=== PATIENT | female | born 1990 | race Caucasian/White ===

== ENCOUNTER 2019-01-25 11:07 | Emergency (ER) | payer OTHER, BC | END 2019-01-25 12:26 | disposition home or self-care (01) | LOC: JERFT 11:07 ==

== ENCOUNTER 2024-03-02 20:41 | Emergency (ER) | payer OTHER ==
[2024-03-02 20:51] VITALS: RESP 18; TEMP 98.6; BMI 28.3
[2024-03-02] MEDS ORDERED: METOCLOPRAMIDE HCL INJECTION 10 MG/2 ML VIAL ONE (21:47)
[2024-03-02] MEDS ORDERED: FAMOTIDINE 20 MG/50 ML IVPB 20 MG/50 ML MG IVPB ONE (21:47)
[2024-03-02 21:58] LABS: BASO % 0.5 % (0-2.0); EOS % 0.4 % (0-4.5); HEMATOCRIT 45.4 % (32.4-45.2); HEMOGLOBIN 15.2 GM/dL (10.7-15.3); LYMPH % 18.7 % (8-40); MCH 29.5 pg (25.7-33.7); MCHC 33.4 g/dl (32.0-36.0); MEAN CELL VOLUME 88.4 fl (80-96); MEAN PLT VOLUME 8.3 fl (7.5-11.1); MONO % 7.6 % (3.8-10.2); NEUT % 72.8 % (42.8-82.8); PLATELET COUNT 242 10^3/uL (134-434); RBC 5.14 M/mm3 (3.60-5.2); RDW 13.9 % (11.6-15.6); WHITE BLOOD COUNT 11.2 K/mm3 (4.0-10.0)
[2024-03-02] MEDS: DEXTROSE 5%-NORMAL SALINE 1,000 ML IV ONE (22:00)
[2024-03-02] MEDS: SODIUM CHLORIDE 0.9% 500 ML INFUS.BAG IV ONE (22:02)
[2024-03-02] MEDS: ONDANSETRON 4 MG/2 ML VIAL IVPUSH ONE (22:02)
[2024-03-02] MEDS: FAMOTIDINE 20 MG/50 ML IVPB 20 MG/50 ML MG IVPB ONE (22:02)
[2024-03-02] MEDS: METOCLOPRAMIDE HCL INJECTION 10 MG/2 ML VIAL IVPB ONE (22:02)
[2024-03-02 22:26] LABS: POTASSIUM 3.9 mmol/L (3.5-5.1)
[2024-03-02 22:28] LABS: BLOOD UREA NITROGEN 11.8 mg/dL (7-18); CALCIUM 9.9 mg/dL (8.5-10.1)
[2024-03-02 22:31] LABS: CREATININE 0.7 mg/dL (0.55-1.3)
[2024-03-02 22:33] LABS: BILIRUBIN,TOTAL 1.3 mg/dL (0.2-1); TOT PROT 8.5 g/dl (6.4-8.2)
[2024-03-02] MEDS ORDERED: MAG HYDROX/AL HYDROX/SIMETH 30 ML UNIT-DOSE CUP ONE (22:41)
[2024-03-02] MEDS: MAG HYDROX/AL HYDROX/SIMETH 30 ML UNIT-DOSE CUP PO ONE (22:42)
[2024-03-02] MEDS ORDERED: PYRIDOXINE HCL (B-6) 50 MG TABLET (FP) PO SCH (23:23)
[2024-03-03] MEDS ORDERED: ONDANSETRON 4 MG/2 ML VIAL ONE (00:09)
[2024-03-03] MEDS: ONDANSETRON 4 MG/2 ML VIAL IVPUSH ONE (00:21)
[2024-03-03] MEDS: PYRIDOXINE HCL (B-6) 50 MG TABLET (FP) PO ONE (01:00)
[2024-03-03 01:09] LABS: URINE APPEARANCE CLEAR; URINE BILIRUBIN NEGATIVE (NEGATIVE); URINE COLOR YELLOW; URINE GLUCOSE (UA) 3+ (NEGATIVE); URINE KETONE 4+ (NEGATIVE); URINE LEUK ESTERASE NEGATIVE (NEGATIVE); URINE NITRITE NEGATIVE (NEGATIVE); URINE PROTEIN NEGATIVE (NEGATIVE)
[2024-03-03 01:20] VITALS: BP 110/70; PULSE 70
[2024-03-03] MEDS ORDERED: PYRIDOXINE HCL (B-6) 50 MG TABLET (FP) PO SCH (10:00)
== END 2024-03-03 01:20 | disposition home or self-care (01) ==
LOC: JER 20:41
PROC: 3E033GC Introduction of Other Therapeutic Substance into Peripheral Vein, Percutaneous Approach (ICD-10-PCS; principal; 2024-03-02)
PROC: 3E033GC Introduction of Other Therapeutic Substance into Peripheral Vein, Percutaneous Approach (ICD-10-PCS; 2024-03-02)
PROC: 3E033GC Introduction of Other Therapeutic Substance into Peripheral Vein, Percutaneous Approach (ICD-10-PCS; 2024-03-03)
DX: O21.0 Mild hyperemesis gravidarum (principal); O26.891 Other specified pregnancy related conditions, first trimester; R10.13 Epigastric pain; Z3A.13 13 weeks gestation of pregnancy
CPT/HCPCS: 36415; 76815-TC; 80053; 81003; 83690; 85025; 87086; 87186; 96365; 96375; 99284-25